=== PATIENT | female | born 1970 | race American Indian/Alaskan Native ===

== ENCOUNTER 2021-11-06 11:58 | Emergency (ER) | payer SELFPAY ==
[2021-11-06] MEDS ORDERED: dexAMETHasone 4 MG/ML VIAL IM ONE (13:19)
[2021-11-06] MEDS ORDERED: oxyCODONE /ACETAMINOPHEN 5-325MG TAB PO ONE (13:20)
[2021-11-06] MEDS ORDERED: KETOROLAC 30 MG/1 ML INJ IM ONE (13:20)
[2021-11-06] MEDS ORDERED: CYCLOBENZAPRINE 10 MG TAB PO ONE (13:20)
--- NOTE | 2021-11-06 15:21 | Emergency Department Report ---
ED Back Pain/Injury HPI - General Chief Complaint: Back Pain/Injury Stated Complaint: LOW BACK PAIN Time Seen by Provider: 11/06/21 13:12 Source: patient Limitations: No Limitations - History of Present Illness Initial Comments: 51-year-old black female with no past medical history presents to the emergency department for evaluation of lower back pain that started yesterday. 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 She denies injury or trauma but states that pain is almost unbearable now. She states that pain is mostly to left lower back with radiation down the back of her left leg. She denies fever, abdominal pain, dysuria, and vaginal discharge. MD Complaint: back pain -: Gradual, days(s) (1) Similar Symptoms Previously: No Place: home, work Radiation: left leg Severity: severe Severity scale (0 -10): 10 Quality: aching Consistency: constant Worsens With: movement, walking Associated Symptoms: denies: confusion, weakness, chest pain, numbness, difficulty walking, cough, difficulty urinating, diaphoresis, incontinence, fever/chills, headaches, abdominal pain, loss of appetite, malaise, nausea/vomiting, rash, seizure, shortness of breath, syncope - Related Data Previous Rx's Medication Instructions Recorded Last Taken Type HYDROcodone/APAP 5-325 [[place] 1 each PO Q6HR PRN #20 tablet 09/08/14 Unknown Rx 5/325] Promethazine [Phenergan] 25 mg PO Q6H PRN #30 tablet 09/08/14 Unknown Rx SUMAtriptan SUCCINATE [Imitrex] 50 mg PO Q2H PRN #20 tab 09/08/14 Unknown Rx Cyclobenzaprine [Flexeril] 10 mg PO TID PRN #30 tab 11/06/21 Unknown Rx Lidocaine [Lidoderm] 1 each TP DAILY PRN #10 patch 11/06/21 Unknown Rx Naproxen [Naprosyn] 500 mg PO BID #14 tab 11/06/21 Unknown Rx methylPREDNISolone [Medrol 4MG 4 mg PO DAILY #1 pack 11/06/21 Unknown Rx DOSEPAK (21 tabs)] Allergies Allergy/AdvReac Type Severity Reaction Status Date / Time No Known Allergies Allergy Verified 11/06/21 12:08 ED Review of Systems ROS: Stated complaint: LOW BACK PAIN Other details as noted in HPI Comment: All other systems reviewed and negative Constitutional: denies: chills, fever Eyes: denies: vision change ENT: denies: congestion Respiratory: denies: cough, shortness of breath, wheezing Cardiovascular: denies: chest pain, palpitations Gastrointestinal: denies: abdominal pain, nausea, vomiting, diarrhea, hematemesis, melena, hematochezia Genitourinary: denies: urgency, dysuria, frequency, hematuria, discharge Musculoskeletal: back pain. denies: arthralgia, myalgia Skin: denies: rash, lesions Neurological: denies: headache, weakness, numbness, paresthesias, vertigo ( ) ED Past Medical Hx - Past Medical History Hx Headaches / Migraines: Yes - Surgical History Additional Surgical History: tubal ligation - Social History Smoking Status: Never Smoker Substance Use Type: None - Medications Home Medications: Home Medications Medication Instructions Recorded Confirmed Last Taken Type HYDROcodone/APAP 5-325 [[place] 1 each PO Q6HR PRN #20 tablet 09/08/14 Unknown Rx 5/325] Promethazine [Phenergan] 25 mg PO Q6H PRN #30 tablet 09/08/14 Unknown Rx SUMAtriptan SUCCINATE [Imitrex] 50 mg PO Q2H PRN #20 tab 09/08/14 Unknown Rx Cyclobenzaprine [Flexeril] 10 mg PO TID PRN #30 tab 11/06/21 Unknown Rx Lidocaine [Lidoderm] 1 each TP DAILY PRN #10 patch 11/06/21 Unknown Rx Naproxen [Naprosyn] 500 mg PO BID #14 tab 11/06/21 Unknown Rx methylPREDNISolone [Medrol 4MG 4 mg PO DAILY #1 pack 11/06/21 Unknown Rx DOSEPAK (21 tabs)] ED Physical Exam - General Limitations: No Limitations General appearance: alert, in no apparent distress - Head Head exam: Present: atraumatic, normocephalic - Eye Eye exam: Present: normal appearance. Absent: conjunctival injection - Neck Neck exam: Present: normal inspection, full ROM. Absent: lymphadenopathy - Respiratory Respiratory exam: Present: normal lung sounds bilaterally. Absent: respiratory distress, wheezes, rales, rhonchi, stridor, chest wall tenderness - Cardiovascular Cardiovascular Exam: Present: tachycardia, normal heart sounds - GI/Abdominal GI/Abdominal exam: Present: soft, normal bowel sounds. Absent: distended, tenderness, guarding, rigid - Extremities Exam Extremities exam: Present: normal inspection, normal capillary refill. Absent: pedal edema, joint swelling, calf tenderness - Back Exam Back exam: Present: normal inspection, tenderness (Left lower). Absent: CVA tenderness (R), CVA tenderness (L), vertebral tenderness - Expanded Back Exam Expanded Back exam: Absent: saddle anesthesia Back exam: Positive Straight Leg Raise: Left - Neurological Exam Neurological exam: Present: alert, oriented X3 - Psychiatric Psychiatric exam: Present: normal affect, normal mood - Skin Skin exam: Present: warm, dry, intact, normal color ED Course Vital Signs 11/06/21 11/06/21 11/06/21 12:05 14:19 16:04 Temperature 98.1 F 98.0 F 98.2 F Pulse Rate 112 H 81 76 Respiratory 22 18 20 Rate Blood Pressure 127/95 127/87 129/82 [Right] O2 Sat by Pulse 100 99 100 Oximetry ED Medical Decision Making - Medical Decision Making 51-year-old black female with no past medical history presents to the emergency department for evaluation of lower back pain that started yesterday. 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 She denies injury or trauma but states that pain is almost unbearable now. She states that pain is mostly to left lower back with radiation down the back of her left leg. She denies fever, abdominal pain, dysuria, and vaginal discharge. Exam assistance consistent with low back pain with sciatica. Pain improved after medication. Patient will be discharged home with Medrol Dosepak, Flexeril, naproxen, and Lidoderm patch to use as needed for pain. She is advised to take medications as prescribed and follow-up with primary care provider if no improvement or worsening symptoms. She is advised to return to the emergency department for any concerning symptoms. She verbalizes under standing of and agreement with plan of care. Critical care attestation.: If time is entered above; I have spent that time in minutes in the direct care of this critically ill patient, excluding procedure time. ED Disposition Clinical Impression: Back pain Qualifiers: Back pain location: low back pain Chronicity: acute Back pain laterality: left Sciatica presence: with sciatica Sciatica laterality: sciatica of left side Qualified Code(s): M54.42 - Lumbago with sciatica, left side Disposition: HOME / SELF CARE / HOMELESS Is pt being admited?: No Does the pt Need Aspirin: No Condition: Stable Instructions: Acute Back Pain, Adult, Sciatica, [id number], Back Injury Prevention Additional Instructions: Medications as prescribed. Follow-up primary care provider if no improvement or worsening symptoms. Return to the emergency department as needed. Prescriptions: Cyclobenzaprine [Flexeril] 10 mg PO TID PRN #30 tab PRN Reason: Muscle Spasm Lidocaine [Lidoderm] 1 each TP DAILY PRN #10 patch PRN Reason: Pain, Moderate (4-6) methylPREDNISolone [Medrol 4MG DOSEPAK (21 tabs)] 4 mg PO DAILY #1 pack Naproxen [Naprosyn] 500 mg PO BID #14 tab Referrals: PRIMARY CAREMD [Primary Care Provider] - 3-5 Days SIDNEY AGUIRRE MD [Staff Physician] - 3-5 Days BHASKAR GREEN MD [Staff Physician] - 3-5 Days Forms: Work/School Release Form(ED) Time of Disposition: 15:21
[2021-11-06 16:05] VITALS: BP 129/82
== END 2021-11-06 16:04 | disposition home or self-care (01) ==
LOC: ED 11:58
DX: M54.50 Low back pain, unspecified (principal)
CPT/HCPCS: 96372; 99282; J1100; J1885